=== PATIENT | male | born 1950 | race Hispanic/Latino ===

== ENCOUNTER 2023-12-25 21:09 | Emergency (ER) | payer OTHER, BC ==
[2023-12-25 22:52] LABS: PT Prothrombin Time 12.7 SECONDS (9.4-12.5); Protime INR 1.16
[2023-12-25 22:54] LABS: Albumin 3.5 g/dL (3.4-5.0); Albumin/Globulin Ratio 1.3 (1.1-1.8); Alkaline Phosphatase 107 U/L (45-117); Anion Gap 11.3 mEq/L (5.0-15.0); BUN Blood Urea Nitrogen 7 mg/dL (7-18); Bicarbonate 23 mEq/L (21-32); Bilirubin Direct 0.2 mg/dL (0-0.2); Bilirubin Indirect, Calculated 0.4 mg/dL (0.2-0.8); Bilirubin Total 0.6 mg/dL (0.2-1.0); Globulin 2.7 g/dL (2.3-3.5); Glomerular Filtration Rate 99 ml/min (=/>90); Glucose Level 102 mg/dL (74-106); Magnesium 2.1 mg/dL (1.6-2.4); NT PRO-BNP 198 pg/mL (<125); Potassium 3.3 mEq/L (3.5-5.1); Protein, Total 6.2 g/dL (6.4-8.2); Sodium Level 124 mEq/L (136-145); Troponin High Sensitivity 5.4 pg/mL (<58.9)
[2023-12-25 23:01] LABS: ALT/SGPT < 14 U/L (16-61); AST/SGOT < 10 U/L (15-37)
[2023-12-25 23:11] LABS: Absolute Lymphocytes (CBC) 1.1 K/uL (0.7-4.9); Absolute Monocytes 0.7 K/uL (0.1-1.3); Absolute Neutrophil 3.6 K/uL (1.8-8.0); Basophils % 1.2 % (0-1.3); Eosinophils % 0.2 % (0-4.4); Hemoglobin 11.2 g/dL (13.6-17.9); Lymphocytes % 20.4 % (15.3-44.8); MCV 75.7 fL (80-100); MPV 9.2 fL (7.6-11.3); Monocytes % 13.1 % (3.3-12.3); Neutrophils % 65.1 % (41.7-73.7); Platelets 313 thou/uL (152-406); RBC Red Blood Cell Count 4.49 M/uL (4.33-5.43); Red Cell Distribution Width 18.1 % (12.1-15.2)
[2023-12-25 23:12] LABS: Absolute Basophils 0.1 K/uL (0-0.5)
--- NOTE | 2023-12-26 01:03 | ER ---
Nurse's Notes [facility] Name: Don Davenport Jr Age: 73 yrs Sex: Male : 1950 Arrival Date: 12/25/2023 Time: 21:09 Bed 7 Private MD: Diagnosis: Hypo-osmolality and hyponatremia Presentation: 12/24 21:43 Chief complaint: Spouse and/or significant other states: difficulty urinating/retention as6 x3 days and difficulty breathing. Coronavirus screen: At this time, the client does not indicate any symptoms associated with coronavirus-19. Ebola Screen: No symptoms or risks identified at this time. Risk Assessment: Do you want to hurt yourself or someone else? Patient reports no desire to harm self or others. Onset of symptoms was December 22, 2023. 21:43 Acuity: BUDDY 3 as6 21:43 Method Of Arrival: Wheelchair as6 21:48 Initial Sepsis Screen: Does the patient meet any 2 criteria? No. Patient's initial as6 sepsis screen is negative. Does the patient have a suspected source of infection? No. Patient's initial sepsis screen is negative. Historical: - Allergies: 21:45 No Known Allergies; as6 - PMHx: 21:45 Parkinson's disease; as6 - PSHx: 21:45 knee; as6 - Immunization history:: Adult Immunizations up to date. - Infectious Disease History:: Denies. - Social history:: Smoking status: Patient denies any tobacco usage or history of. Screenin:17 [facility] ED Fall Risk Assessment (Adult) History of falling in the last 3 months, jb4 including since admission No falls in past 3 months (0 pts) Confusion or Disorientation No (0 pts) Intoxicated or Sedated No (0 pts) Impaired Gait Yes (1 pt) Mobility Assist Device Used No (0 pt) Altered Elimination Yes (1 pt) Score/Fall Risk Level 0 - 2 = Low Risk Oriented to surroundings, Maintained a safe environment. Abuse screen: Denies threats or abuse. Nutritional screening: No deficits noted. Tuberculosis screening: No symptoms or risk factors identified. Assessment: 21:50 General: Appears in no apparent distress. uncomfortable, Behavior is calm, cooperative. jb4 Pain: Pain: Complains of pain in mid-sternal area Pain does not radiate. Pain currently is 8 out of 10 on a pain scale. Quality of pain is described as stabbing. Neuro: Level of Consciousness is awake, alert, obeys commands. Cardiovascular: Patient's skin is warm and dry. Respiratory: Airway is patent Respiratory effort is even, labored, Respiratory pattern is regular, symmetrical. GI: No signs and/or symptoms were reported involving the gastrointestinal system. : Reports difficulty urinating. EENT: No signs and/or symptoms were reported regarding the EENT system. Derm: Skin is intact, Skin is pink, warm \T\ dry. Musculoskeletal: Circulation, motion, and sensation intact. Range of motion: intact in all extremities. 23:00 Reassessment: Pt currently in the restroom. jb4 23:17 Reassessment: Patient appears in no apparent distress at this time. Patient and/or jb4 family updated on plan of care and expected duration. Pain level reassessed. Patient is alert, oriented x 3, equal unlabored respirations, skin warm/dry/pink. Pt back in room. 12/25 00:14 Reassessment: Patient appears in no apparent distress at this time. Patient and/or jb4 family updated on plan of care and expected duration. Pain level reassessed. Patient is alert, oriented x 3, equal unlabored respirations, skin warm/dry/pink. 01:23 Reassessment: Patient appears in no apparent distress at this time. Patient and/or jb4 family updated on plan of care and expected duration. Pain level reassessed. Patient is alert, oriented x 3, equal unlabored respirations, skin warm/dry/pink. Vital Signs: 12/24 21:46 BP 125 / 71; Pulse 76; Resp 16; Temp 97.7(TE); Pulse Ox 94% ; Weight 93.44 kg; Height 5 as6 ft. 7 in. ; Pain 8/10; 12/25 00:14 BP 158 / 78; Pulse 78; Resp 23; Pulse Ox 99% on R/A; jb4 12/24 21:46 Body Mass Index 32.26 (93.44 kg, 170.18 cm) as6 12/24 21:46 Pain Scale: Adult as6 ED Course: 12/24 21:11 Patient arrived in ED. rg4 21:22 Sameer Castaneda MD is Attending Physician. sp3 21:45 Triage completed. as6 21:45 Arm band placed on left wrist. as6 22:19 Initial lab(s) drawn, by me, sent to lab. EKG done, by ED staff, reviewed by Sameer Castaneda MD. Inserted saline lock: 20 gauge in right antecubital area, using aseptic technique. Blood collected. 22:20 Basic Metabolic Panel Sent. jb4 22:20 CBC with Diff Sent. jb4 22:20 LFT's Sent. jb4 22:20 Magnesium Sent. jb4 22:20 NT PRO-BNP Sent. jb4 22:20 PT-INR Sent. jb4 22:20 Troponin HS Sent. jb4 22:54 Diana Ochoa, RN is Primary Nurse. tm6 23:17 Patient has correct armband on for positive identification. Bed in low position. Call jb4 light in reach. Side rails up X 1. Provided Education on: plan of care. 23:17 No provider procedures requiring assistance completed. jb4 23:36 CT Chest For PE Angio In Process Unspecified. EDMS 12/25 01:23 IV discontinued, intact, bleeding controlled, No redness/swelling at site. Pressure jb4 dressing applied. Administered Medications: 00:39 CANCELLED (error): [id number] mg PO once sp3 00:39 CANCELLED (error): [id number] mg PO once sp3 01:15 Drug: ALPRAZolam PO Tablet 0.25 mg PO once Route: PO; jb4 Medication: 12/24 23:17 VIS not applicable for this client. jb4 Outcome: 12/25 01:03 Discharge ordered by . sp3 01:23 Discharged to home via wheelchair, with family, jb4 01:23 Condition: stable 01:23 Discharge instructions given to patient, Instructed on discharge instructions, follow up and referral plans. Demonstrated understanding of instructions, follow-up care, 01:24 Patient left the ED. jb4 Signatures: Dispatcher [employer] EDMS Ivonne Shell rg4 Chidi Wheeler, KIKO RN Sameer Lazar MD MD sp3 Buck Borja RN RN as6 Diana Ochoa, KIKO RN tm6 Corrections: (The following items were deleted from the chart) 12/24 23:17 21:50 Pain: jb4 jb4 12/25 00:12/24 23:17 Reassessment: Patient appears in no apparent distress at this time. No jb4 changes from previously documented assessment. Patient and/or family updated on plan of care and expected duration. Pain level reassessed. Pt back in room jb4
--- NOTE | 2023-12-26 01:03 | EDPHYS ---
Physician Documentation [facility] Name: Don Davenport Jr Age: 73 yrs Sex: Male : 1950 Arrival Date: 12/25/2023 Time: 21:09 Bed 7 Private MD: ED Physician Sameer Castaneda HPI: 12/24 21:52 This 73 yrs old Male presents to ER via Wheelchair with complaints of sp3 Breathing Difficulty. 21:52 73-year-old male with history of Parkinson's disease, anxiety now presents to the ED sp3 with chief complaint shortness of breath, nausea and also urinary retention. Patient denies fever, cough, chest pain, back pain, known sick contacts, travel history, prolonged immobilization, rash, or any other signs or symptoms on ROS at this time. Symptoms been going on for the last 2 to 3 days.. Historical: - Allergies: 21:45 No Known Allergies; as6 - PMHx: 21:45 Parkinson's disease; as6 - PSHx: 21:45 knee; as6 - Immunization history:: Adult Immunizations up to date. - Infectious Disease History:: Denies. - Social history:: Smoking status: Patient denies any tobacco usage or history of. ROS: 22:26 Constitutional: Negative for fever, chills, and weight loss, Eyes: Negative for injury, sp3 pain, redness, and discharge, ENT: Negative for injury, pain, and discharge, Neck: Negative for injury, pain, and swelling, Cardiovascular: Negative for chest pain, palpitations, and edema, Abdomen/GI: Negative for abdominal pain, nausea, vomiting, diarrhea, and constipation, Back: Negative for injury and pain, MS/Extremity: Negative for injury and deformity, Skin: Negative for injury, rash, and discoloration, Neuro: Negative for headache, weakness, numbness, tingling, and seizure, Psych: Negative for depression, anxiety, suicide ideation, homicidal ideation, and hallucinations, Allergy/Immunology: Negative for hives, rash, and allergies, Endocrine: Negative for neck swelling, polydipsia, polyuria, polyphagia, and marked weight changes, Hematologic/Lymphatic: Negative for swollen nodes, abnormal bleeding, and unusual bruising, 22:26 All other systems are negative, Exam: 22:26 Constitutional: This is a well developed, well nourished patient who is awake, alert, sp3 and in no acute distress. Head/Face: Normocephalic, atraumatic. Eyes: Pupils equal round and reactive to light, extra-ocular motions intact. Lids and lashes normal. Conjunctiva and sclera are non-icteric and not injected. Cornea within normal limits. Periorbital areas with no swelling, redness, or edema. Neck: Trachea midline, no thyromegaly or masses palpated, and no cervical lymphadenopathy. Supple, full range of motion without nuchal rigidity, or vertebral point tenderness. No Meningismus. Chest/axilla: Normal chest wall appearance and motion. Nontender with no deformity. No lesions are appreciated. Cardiovascular: Regular rate and rhythm with a normal S1 and S2. No gallops, murmurs, or rubs. Normal PMI, no JVD. No pulse deficits. Abdomen/GI: Soft, non-tender, with normal bowel sounds. No distension or tympany. No guarding or rebound. No evidence of tenderness throughout. Back: No spinal tenderness. No costovertebral tenderness. Full range of motion. Skin: Warm, dry with normal turgor. Normal color with no rashes, no lesions, and no evidence of cellulitis. MS/ Extremity: Pulses equal, no cyanosis. Neurovascular intact. Full, normal range of motion. Neuro: Awake and alert, GCS 15, oriented to person, place, time, and situation. Cranial nerves II-XII grossly intact. Motor strength 5/5 in all extremities. Sensory grossly intact. Cerebellar exam normal. Normal gait. Psych: Awake, alert, with orientation to person, place and time. Behavior, mood, and affect are within normal limits. 22:26 Respiratory: Coarse breath sounds bilaterally, 22:31 ECG was reviewed by the Attending Physician. EKG demonstrates normal sinus rhythm at 71 sp3 bpm with normal intervals, normal QRS, normal axis, nonspecific diffuse ST's ST changes without evidence of acute ischemia. Vital Signs: 21:46 BP 125 / 71; Pulse 76; Resp 16; Temp 97.7(TE); Pulse Ox 94% ; Weight 93.44 kg; Height 5 as6 ft. 7 in. ; Pain 8/10; 12/25 00:14 BP 158 / 78; Pulse 78; Resp 23; Pulse Ox 99% on R/A; jb4 12/24 21:46 Body Mass Index 32.26 (93.44 kg, 170.18 cm) as6 12/24 21:46 Pain Scale: Adult as6 MDM: 12/24 21:47 Patient medically screened. sp3 22:26 Data reviewed: vital signs, nurses notes, lab test result(s), EKG, radiologic studies. sp3 ED course: 73-year-old male with history of Parkinson disease now with dyspnea. Patient does have decreased mobility therefore we will assess for pulmonary embolism as well. Differential diagnosis includes viral illness, pneumonia, bronchitis, PE, acute coronary syndrome, among others. Admit highly suspicious for sepsis, shock or other critical illness. Workup will include EKG, CT scan of the lungs/chest PE protocol, and general laboratory values. Patient is clinically stable. Disposition pending workup and patient course.. 12/25 01:00 ED course: Patient with sodium of 124. After further history taking from family, sp3 patient has been taking very large amounts of water p.o. So this is likely hypervolemic hyponatremia. I offered admission and informed patient and family that the normal course of action for sodium to slow his admission however patient does not want to be transferred [place]. They asked what treatment we can do at home to which I replied oral sodium with decreased plain water intake. They state that they will try this and follow-up with her PCP and will return here for any worsening symptoms. They also requested 1 dose of something to help with patient's anxiety which she has been having at night. Will give Xanax 1 dose and discharge patient home with clear instructions to return if they change her mind or get worse in any way.. 12/24 21:48 Order name: Basic Metabolic Panel; Complete Time: 23:18 3 12/24 21:48 Order name: CBC with Diff; Complete Time: 23:18 [facility] 12/24 21:48 Order name: LFT's; Complete Time: 23:18 3 12/24 21:48 Order name: Magnesium; Complete Time: 23:18 3 12/24 21:48 Order name: NT PRO-BNP; Complete Time: 23:18 3 12/24 21:48 Order name: PT-INR; Complete Time: 23:18 3 12/24 21:48 Order name: Troponin HS; Complete Time: 23:18 sp3 12/24 21:48 Order name: CT Chest For PE Angio sp3 12/24 21:48 Order name: EKG; Complete Time: 21:49 sp3 12/24 21:48 Order name: Cardiac monitoring; Complete Time: 22:20 sp3 12/24 21:48 Order name: EKG - Nurse/Tech; Complete Time: 22:20 sp3 12/24 21:48 Order name: IV Saline Lock; Complete Time: 22:20 sp3 12/24 21:48 Order name: Labs collected and sent; Complete Time: 22:20 sp3 12/24 21:48 Order name: O2 Per Protocol; Complete Time: 22:12 sp3 12/24 21:48 Order name: O2 Sat Monitoring; Complete Time: 22:12 sp3 Administered Medications: 00:39 CANCELLED (error): [id number] mg PO once sp3 00:39 CANCELLED (error): [id number] mg PO once sp3 01:15 Drug: ALPRAZolam PO Tablet 0.25 mg PO once Route: PO; jb4 Disposition Summary: 12/26/23 01:03 Discharge Ordered Notes: Location: Home sp3 Condition: Stable sp3 Diagnosis - Hypo-osmolality and hyponatremia sp3 Followup: sp3 - With: Private Physician - When: Upon discharge from the Emergency Department - Reason: Continuance of care Discharge Instructions: - Discharge Summary Sheet sp3 - Hyponatremia sp3 Forms: - Medication Reconciliation Form sp3 - Antibiotic Education sp3 - Prescription Opioid Use sp3 - Patient Portal Instructions sp3 - Leadership Thank You Letter sp3 Signatures: Dispatcher [employer] EDMS Chidi Wheeler RN RN jb4 Sameer Castaneda MD MD sp3 Buck Borja RN RN as6 Corrections: (The following items were deleted from the chart) 12/24 22:26 21:52 73-year-old male with history of Parkinson's disease, anxiety now presents to the 3 ED with chief complaint shortness of breath, nausea and also urinary retention . sp3 12/25 00:39 00:39 OxyCONTIN PO 30 mg PO once ordered. sp3 sp3 00:39 00:39 oxyCODONE PO 20 mg PO once ordered. sp3 sp3
[2023-12-26] MEDS ORDERED: ALPRAZOLAM 0.25 MG TABLET ONE (01:12)
[2023-12-26 01:40] VITALS: BP 158/78; TEMP 97.7; O2SAT 99
--- NOTE | 2023-12-26 12:28 | RAD REPORT ---
EXAM DESCRIPTION: CT - Chest For Pe Angio - 12/26/2023 6:55 am CLINICAL HISTORY: The patient is 73 years old and is Male; DYSPNEA TECHNIQUE: Axial computed tomographic angiography images of the chest with intravenous contrast. T his CT exam was performed using one or more of the following dose reduction techniques: automated e xposure control, adjustment of the mA and/or kV according to patient size, and/or use of iterative re construction technique. MIP reconstructed images were created and reviewed. DLP: 575 mGy*cm COMPARISON: None. FINDINGS: PULMONARY ARTERIES: Unremarkable. No pulmonary embolism. AORTA: No acute findings. No thoracic aortic aneurysm. LUNGS: Unremarkable. No mass. No consolidation. PLEURAL SPACE: Unremarkable. No significant effusion. No pneumothorax. HEART: Unremarkable. No cardiomegaly. No significant pericardial effusion. No evidence of RV dysfunction. BONES/JOINTS: Mild multilevel degenerative changes. No acute fracture. No dislocation. SOFT TISSUES: Unremarkable. LYMPH NODES: Unremarkable. No enlarged lymph nodes. LIVER: Hepatic steatosis. IMPRESSION: 1. No pulmonary embolism. No acute intrathoracic abnormality. 2. Hepatic steatosis. Electronically signed by: Maximilian Love DO 12/26/2023 12:32 AM CDT RP 9 Due to temporary technical issues with the PACS/Fluency reporting system, reports are being signed by the in house radiologist without review as a courtesy to ensure prompt reporting. The interpreting r adiologist is fully responsible for the content of the report.
--- NOTE | 2023-12-27 12:14 | EKG ---
Test Date: 2023-12-25 Test Time: 22:15:44 Universal Grinder Operator: MAURICE MEASUREMENT RESULTS: Intervals: Rate: 71 AL: 146 QRSD: 84 QT: 416 QTc: 452 [place]: P: 38 AL: 146 QRS: 9 T: -3 INTERPRETIVE STATEMENTS: Normal sinus rhythm Septal infarct, age undetermined Abnormal ECG Compared to ECG 04/12/2015 22:28:04 Myocardial infarct finding now present Electronically Signed On 12-27-23 12:11:06 CDT by Elmer Garza
== END 2023-12-26 01:24 | disposition home or self-care (01) ==
LOC: ER 21:09
DX: E87.1 Hypo-osmolality and hyponatremia (principal); G20.A1 Parkinson's disease without dyskinesia, without mention of fluctuations
CPT/HCPCS: 93005; 85025; 80048; 36415; 83735; 85610; 80076; 84484; 83880; 71275; 99284; Q9967

== ENCOUNTER 2024-10-04 17:22 | Emergency (ER) | payer OTHER, BC ==
--- NOTE | 2024-10-04 18:21 | RAD REPORT ---
EXAMINATION: CT HEAD WITHOUT CONTRAST CT CERVICAL SPINE WITHOUT CONTRAST CLINICAL INDICATION: Head and neck injury status post fall. Head and neck pain TECHNIQUE: Axial CT images from the skull base to the vertex without intravenous contrast. Axial CT i mages through the cervical spine were obtained without intravenous contrast. Sagittal and coronal reformatted images were created from the data set. Coronal and sagittal reformatted images were creat ed from the data set. One or more of the following dose reduction techniques were used: Automated exposure control, adjustment of the mA and/or kV according to patient size, and/or iterative reconstr uction. Unless otherwise specified, incidental findings do not require dedicated imaging follow-up. [id number]. Comparison: 2013 FINDINGS: An intracranial bleed is not seen. Ventricles are normal in caliber. No significant hypodensity within the brain No extra-axial fluid collection. No fluid within the sinuses/mastoids No fracture or dislocation is seen involving the cervical spine. IMPRESSION: No acute intracranial abnormality noted A cervical fracture is not seen. 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
[2024-10-04 18:30] LABS: Absolute Basophils 0.1 K/uL (0-0.5); Absolute Eosinophils 0.1 K/uL (0-0.5); Absolute Lymphocytes (CBC) 1.1 K/uL (0.7-4.9); Absolute Monocytes 0.6 K/uL (0.1-1.3); Absolute Neutrophil 5.9 K/uL (1.8-8.0); Basophils % 1.2 % (0-1.3); Eosinophils % 0.8 % (0-4.4); Hematocrit 35.3 % (39.6-49.0); Hemoglobin 11.8 g/dL (13.6-17.9); Lymphocytes % 13.9 % (15.3-44.8); MCH 26.4 pg (27.0-35.0); MCHC 33.6 g/dL (32.0-36.0); MCV 78.7 fL (80-100); MPV 6.5 fL (7.6-11.3); Monocytes % 7.6 % (3.3-12.3); Neutrophils % 76.5 % (41.7-73.7); Nucleated Red Blood Cells % 0.2 % (0-0); Platelets 353 thou/uL (152-406); RBC Red Blood Cell Count 4.48 M/uL (4.33-5.43); Red Cell Distribution Width 16.9 % (12.1-15.2)
--- NOTE | 2024-10-04 18:35 | RAD REPORT ---
Procedure: Chest Single View HISTORY: Chest pain COMPARISON: 2019 FINDINGS: Prominent right paratracheal opacity. The lungs appear clear of acute infiltrate. No significant pleural effusion noted. The heart is borderline enlarged. IMPRESSION: Prominent right paratracheal opacity probably tortuous brachiocephalic vessels.. It is recommended th at the patient have PA and lateral chest films for further evaluation
[2024-10-04 18:36] LABS: PT Prothrombin Time 10.7 SECONDS (10-13.0); Protime INR 0.94
[2024-10-04 18:49] LABS: Anion Gap 7.9 mEq/L (5.0-15.0); Magnesium 2.3 mg/dL (1.6-2.4); Potassium 3.9 mEq/L (3.5-5.1); Troponin High Sensitivity 22.4 pg/mL (<58.9)
[2024-10-04] MEDS ORDERED: TRAMADOL HCL 50 MG TAB ONE (20:38)
[2024-10-04] MEDS ORDERED: ACETAMINOPHEN 500 MG TAB ONE (20:38)
--- NOTE | 2024-10-04 20:49 | EDPHYS ---
Physician Documentation [facility] Name: Don Davenport Jr Age: 73 yrs Sex: Male : 1950 Arrival Date: 10/04/2024 Time: 17:22 Bed 16 Private MD: ED Physician Leana Lloyd HPI: 10/04 17:45 This 73 yrs old Male presents to ER via EMS with complaints of Fall Injury. cp 17:45 Details of fall: The patient fell from an upright position, while standing, while cp walking. Onset: The symptoms/episode began/occurred about 1-2 hours ago. 17:45 Severity of symptoms: in the emergency department the symptoms are unchanged, despite cp EMS interventions. 17:45 Associated injuries: The patient sustained injury to the head, contusion, swelling, cp tenderness, neck injury, pain, tenderness. Historical: - Allergies: 17:24 No Known Allergies; db - PMHx: 17:24 Parkinson's disease; db - PSHx: 17:24 knee; db - Immunization history:: Adult Immunizations unknown. - Infectious Disease History:: Denies. - Social history:: Smoking status: Patient denies any tobacco usage or history of. ROS: 17:50 Constitutional: history per hpi cp 17:50 Neck: Positive for pain with movement, pain at rest, cp 17:50 Cardiovascular: Negative for chest pain, palpitations, 17:50 Respiratory: Negative for cough, shortness of breath, wheezing, 17:50 Neuro: Negative for altered mental status, loss of consciousness, 17:50 All other systems are negative, Exam: 17:55 Constitutional: The patient appears in no acute distress, alert, awake, cp non-diaphoretic, non-toxic, well developed, well nourished, 17:55 Head/face: Noted is abrasion(s), that are moderate, of the forehead, swelling, that is cp mild, of the forehead, tenderness, 17:55 Eyes: Periorbital structures: appear normal, Pupils: equal, round, and reactive to light and accomodation, Extraocular movements: intact throughout, Conjunctiva: normal, no exudate, no injection, Sclera: no appreciated abnormality, Lids and lashes: appear normal, bilaterally, 17:55 ENT: External ear(s): are unremarkable, Nose: is normal, Mouth: Lips: moist, Oral mucosa: moist, Posterior pharynx: Airway: no evidence of obstruction, patent, 17:55 Neck: C-spine: C-collar placed COPYWRITER, 17:55 Chest/axilla: Inspection: normal, Palpation: crepitus, is not appreciated, tenderness, is not appreciated, 17:55 Cardiovascular: Rate: normal, Rhythm: regular, Edema: is not appreciated, JVD: is not appreciated, 17:55 Respiratory: the patient does not display signs of respiratory distress, Respirations: normal, no use of accessory muscles, no retractions, labored breathing, is not present, Breath sounds: are clear throughout, no decreased breath sounds, no stridor, no wheezing, 17:55 Abdomen/GI: Inspection: abdomen appears normal, Palpation: abdomen is soft and non-tender, in all quadrants, 17:55 Back: vertebral tenderness, is not appreciated, 17:55 Musculoskeletal/extremity: Exam is negative for decreased range of motion, deformity, 17:55 Neuro: Orientation: no acute changes, per EMS, Mentation: no acute changes, per EMS, Abnormal movements: resting tremor, is located in the right hand, 18:15 ECG was reviewed by the Attending Physician. Vital Signs: 17:24 BP 172 / 75; Pulse 94; Resp 18; Temp 98.5; Pulse Ox 97% ; Weight 75.75 kg; Height 5 ft. db 8 in. ; 18:44 BP 169 / 94; Pulse 95; Resp 18 S; Pulse Ox 99% on R/A; ld1 19:58 BP 151 / 67; Pulse 82; Resp 25; Pulse Ox 98% on R/A; br2 20:32 BP 162 / 93; Pulse 83; Resp 18 S; Pulse Ox 98% on R/A; br2 17:24 Body Mass Index 25.39 (75.75 kg, 172.72 cm) db MDM: 20:48 Medical Screening Exam initiated cp 20:48 Data reviewed: vital signs, nurses notes, lab test result(s), EKG, radiologic studies, cp CT scan, plain films, and as a result, I will discharge patient. 20:48 Differential diagnosis: closed head injury, contusion, fracture, laceration, multiple cp trauma. I considered the following discharge prescriptions or medication management in the emergency department Medications were administered in the Emergency Department. See MAR. Counseling: I had a detailed discussion with the patient and/or guardian regarding the historical points, exam findings, and any diagnostic results supporting the discharge/admit diagnosis, lab results, radiology results, to return to the emergency department if symptoms worsen or persist or if there are any questions or concerns that arise at home. Response to treatment: the patient's symptoms have mildly improved after treatment, and as a result, I will discharge patient. 10/04 17:40 Order name: Basic Metabolic Panel; Complete Time: 18:56 cp 10/04 18:57 Interpretation: Normal except: NA 134; GLUC 116; CRE 0.60; CA 8.2. cp 10/04 17:40 Order name: CBC with Diff; Complete Time: 18:56 cp 10/04 18:57 Interpretation: Normal except: HGB 11.8; HCT 35.3; MCV 78.7; MCH 26.4; RDW 16.9; MPV cp 6.5; LUIS% 76.5; LYM% 13.9. 10/04 17:40 Order name: Magnesium; Complete Time: 18:56 cp 10/04 17:40 Order name: PT-INR; Complete Time: 18:56 cp 10/04 17:40 Order name: Troponin HS; Complete Time: 18:56 cp 10/04 18:57 Interpretation: Reviewed. cp 10/04 17:40 Order name: XRAY Chest (1 view); Complete Time: 18:56 cp 10/04 20:25 Interpretation: Report review. cp 10/04 17:40 Order name: CT Head C Spine; Complete Time: 18:56 cp 10/04 17:40 Order name: EKG; Complete Time: 17:40 cp 10/04 17:40 Order name: Cardiac monitoring; Complete Time: 18:22 cp 10/04 17:40 Order name: EKG - Nurse/Tech; Complete Time: 17:59 cp 10/04 17:40 Order name: IV Saline Lock; Complete Time: 18:22 cp 10/04 17:40 Order name: Labs collected and sent; Complete Time: 18:22 cp 10/04 17:40 Order name: O2 Per Protocol; Complete Time: 17:59 cp 10/04 17:40 Order name: O2 Sat Monitoring; Complete Time: 17:59 cp EC:15 Rate is 84 beats/min. Rhythm is regular. KS interval is normal. QRS interval is normal. cp QT interval is normal. T waves are Inverted in lead aVR. Interpreted by me. Reviewed by me. Administered Medications: 20:47 Drug: Acetaminophen PO 1000 mg PO once Route: PO; br2 21:08 Follow up: Response: Medication administered at discharge. br2 20:47 Drug: traMADol PO 50 mg PO once Route: PO; br2 21:08 Follow up: Response: Medication administered at discharge. br2 Disposition: 10/05 20:55 Chart complete. cp Disposition Summary: 10/04/24 20:48 Discharge Ordered Notes: Location: Home cp Problem: new cp Symptoms: have improved cp Condition: Stable cp Diagnosis - Fall on same level from slipping, tripping and stumbling with subsequent striking cp against object - Contusion of unspecified part of head, initial encounter cp - Cervicalgia cp Followup: cp - With: Emergency Department - When: As needed - Reason: Worsening of condition Discharge Instructions: - Discharge Summary Sheet cp - Facial or Scalp Contusion cp - Head Injury, Adult cp - Musculoskeletal Pain cp - Neck Exercises cp Forms: - Medication Reconciliation Form cp - Antibiotic Education cp - Prescription Opioid Use cp - Patient Portal Instructions cp - Leadership Thank You Letter cp Signatures: Dispatcher [employer] EDMS Jerel Fox PA PA cp Paola Jenkins, RN RN db Cami Logan RN RN br2 Corrections: (The following items were deleted from the chart) 10/04 17:41 17:40 BASIC METABOLIC PANEL+C.LAB.BRZ ordered. EDMS EDMS 17:41 17:40 CBC+H.LAB.BRZ ordered. EDMS EDMS 17:41 17:40 MAGNESIUM+C.LAB.BRZ ordered. EDMS EDMS 17:41 17:40 PROTIME (+INR)+COAG.LAB.BRZ ordered. EDMS EDMS 17:41 17:40 Troponin High Sensitivity+C.LAB.BRZ ordered. EDMS EDMS 19:51 18:59 Chest Abdomen Pelvis W Con+CT.RAD.BRZ ordered. EDAZ EDMS 10/05 20:31 10/04 17:45 Associated injuries: The patient sustained injury to the head, contusion, cp swelling, neck injury, pain, knee pain, cp
--- NOTE | 2024-10-04 20:49 | ER ---
Nurse's Notes [facility] Name: Don Davenport Jr Age: 73 yrs Sex: Male : 1950 Arrival Date: 10/04/2024 Time: 17:22 Bed 16 Private MD: Diagnosis: Fall on same level from slipping, tripping and stumbling with subsequent striking against object;Contusion of unspecified part of head, initial encounter;Cervicalgia Presentation: 10/04 17:24 Chief complaint: EMS states: FELL WALKING INTO HOME. FOUND ON GROUND STATES WAS ON db GROUND 1 HOUR. HIT HEAD AND HAS NECK PAIN, ABRASION TO FOREHEAD, LEFT KNEE PAIN. Coronavirus screen: Client denies travel out of the [place] in the last 14 days. At this time, the client does not indicate any symptoms associated with coronavirus-19. Ebola Screen: Patient negative for fever greater than or equal to 101.5 degrees Fahrenheit, and additional compatible Ebola Virus Disease symptoms Patient denies exposure to infectious person. Patient denies travel to an Ebola-affected area in the 21 days before illness onset. No symptoms or risks identified at this time. Initial Sepsis Screen: Does the patient meet any 2 criteria? No. Patient's initial sepsis screen is negative. Does the patient have a suspected source of infection? No. Patient's initial sepsis screen is negative. Risk Assessment: Do you want to hurt yourself or someone else? Patient reports no desire to harm self or others. Onset of symptoms was October 04, 2024. Care prior to arrival: Cervical collar in place. Medication(s) given: Tylenol, 1000 mg, IV IV initiated. 20 GA, in the left forearm, Glucose check: 138. 17:24 Method Of Arrival: EMS: [facility] db 17:24 Acuity: BUDDY 3 db Triage Assessment: 17:24 General: Appears in no apparent distress. comfortable, Behavior is calm, cooperative. db Pain: Complains of pain in forehead, left arm and left leg. Pain: Complains of pain in neck. Neuro: Level of Consciousness is awake, alert, obeys commands, Oriented to person, place, time, situation. Respiratory: Airway is patent Respiratory effort is even, unlabored, Respiratory pattern is regular, symmetrical. 17:24 Derm: Wound noted forehead. Musculoskeletal: Circulation, motion, and sensation intact. db Capillary refill < 3 seconds, Range of motion: limited in left knee. Historical: - Allergies: 17:24 No Known Allergies; db - PMHx: 17:24 Parkinson's disease; db - PSHx: 17:24 knee; db - Immunization history:: Adult Immunizations unknown. - Infectious Disease History:: Denies. - Social history:: Smoking status: Patient denies any tobacco usage or history of. Screenin:15 [facility] ED Fall Risk Assessment (Adult) History of falling in the last 3 months, kc6 including since admission Yes- fall prone (multiple falls) (3 pts) Confusion or Disorientation No (0 pts) Intoxicated or Sedated No (0 pts) Impaired Gait No (0 pts) Mobility Assist Device Used Yes (1 pt) Altered Elimination No (0 pt) Score/Fall Risk Level 3 or more points = High Risk Oriented to surroundings, Maintained a safe environment, Educated pt \T\ family on fall prevention, incl call for assistance when getting out of bed. Abuse screen: Denies threats or abuse. Denies injuries from another. Nutritional screening: No deficits noted. Tuberculosis screening: No symptoms or risk factors identified. Assessment: 17:55 Reassessment: Patient appears in no apparent distress at this time. Patient and/or db family updated on plan of care and expected duration. Pain level reassessed. Patient is alert, oriented x 3, equal unlabored respirations, skin warm/dry/pink. General: Appears in no apparent distress. comfortable, Behavior is calm, cooperative. Neuro: Level of Consciousness is awake, alert, obeys commands, Oriented to person, place, time, situation. Respiratory: Airway is patent Respiratory effort is even, unlabored, Respiratory pattern is regular, symmetrical. 18:15 General: Appears in no apparent distress. uncomfortable, well groomed, well developed, kc6 Behavior is calm, cooperative, appropriate for age. Pain: Complains of pain in anterior aspect of right shoulder and anterior aspect of left shoulder and neck and forehead. Cardiovascular: Capillary refill < 3 seconds. Respiratory: Airway is patent Trachea midline Respiratory effort is even, unlabored, Respiratory pattern is regular, symmetrical. GI: No signs and/or symptoms were reported involving the gastrointestinal system. : No signs and/or symptoms were reported regarding the genitourinary system. EENT: No signs and/or symptoms were reported regarding the EENT system. Derm: No signs and/or symptoms reported regarding the dermatologic system. Skin is healthy with good turgor, Skin is pink, warm \T\ dry. Musculoskeletal: Range of motion: limited in right shoulder. Injury Description: Abrasion sustained to forehead. 19:07 Reassessment: Patient and/or family updated on plan of care and expected duration. Pain br2 level reassessed. Patient is alert, oriented x 3, equal unlabored respirations, skin warm/dry/pink. Patient states symptoms have improved. 20:47 Reassessment: Patient and/or family updated on plan of care and expected duration. Pain br2 level reassessed. Patient is alert, oriented x 3, equal unlabored respirations, skin warm/dry/pink. Patient states feeling better. Patient states symptoms have improved. Vital Signs: 17:24 BP 172 / 75; Pulse 94; Resp 18; Temp 98.5; Pulse Ox 97% ; Weight 75.75 kg; Height 5 ft. db 8 in. ; 18:44 BP 169 / 94; Pulse 95; Resp 18 S; Pulse Ox 99% on R/A; ld1 19:58 BP 151 / 67; Pulse 82; Resp 25; Pulse Ox 98% on R/A; br2 20:32 BP 162 / 93; Pulse 83; Resp 18 S; Pulse Ox 98% on R/A; br2 17:24 Body Mass Index 25.39 (75.75 kg, 172.72 cm) db ED Course: 17:24 Arm band placed on Patient placed in an exam room. db 17:33 Patient arrived in ED. db 17:39 Jerel Fox PA is PHCP. cp 17:39 Leana Lloyd MD is Attending Physician. cp 17:52 Triage completed. db 17:[address] via stretcher. db 17:56 Tara De La Paz, KIKO is Primary Nurse. kc6 18:13 CT Head C Spine In Process Unspecified. EDMS 18:15 Patient has correct armband on for positive identification. Bed in low position. Call kc6 light in reach. Side rails up X2. Adult w/ patient. awake overnight monitor on. Pulse ox on. NIBP on. Door closed. Noise minimized. Lights dimmed. Pillow given. Verbal reassurance given. 18:15 Patient maintains SpO2 saturation greater than 95% on room air. kc6 18:15 Maintain EMS IV. Dressing intact. Good blood return noted. Site clean \T\ dry. Gauge \T\ jai 6 site: 20G LFA. Flushed with 10 mL NS. 18:19 XRAY Chest (1 view) In Process Unspecified. EDMS 18:28 Warm blanket given. am7 19:06 C-COLLAR REMOVED PER PROVIDER AND CT. br2 21:07 IV discontinued, intact, bleeding controlled, No redness/swelling at site. Pressure br2 dressing applied. Administered Medications: 20:47 Drug: Acetaminophen PO 1000 mg PO once Route: PO; br2 21:08 Follow up: Response: Medication administered at discharge. br2 20:47 Drug: traMADol PO 50 mg PO once Route: PO; br2 21:08 Follow up: Response: Medication administered at discharge. br2 Outcome: 20:48 Discharge ordered by MD. cp 21:07 Discharged to home via wheelchair, br2 21:07 Condition: stable 21:07 Discharge instructions given to patient, family, Instructed on discharge instructions, follow up and referral plans. Demonstrated understanding of instructions, follow-up care, 21:08 Patient left the ED. br2 Signatures: Dispatcher [employer] EDMS Jerel Fox PA PA cp Sims, Lauren RN RN ld1 Tara De La Paz RN RN kc6 Paola Jenkins RN RN db Cami Logan RN RN br2 Renee Burgos am7
[2024-10-04 21:38] VITALS: TEMP 98.5
[2024-10-04 21:41] VITALS: O2SAT 98
[2024-10-04 21:43] VITALS: BP 162/93
== END 2024-10-04 21:08 | disposition home or self-care (01) ==
LOC: ER 17:22
DX: S00.83XA Contusion of other part of head, initial encounter (principal); M54.2 Cervicalgia; W01.10XA Fall on same level from slipping, tripping and stumbling with subsequent striking against unspecified object, initial encounter; G20.A1 Parkinson's disease without dyskinesia, without mention of fluctuations
CPT/HCPCS: 36415; 70450; 71045; 72125; 80048; 83735; 84484; 85025; 85610; 93005; 99285